=== PATIENT | female | born 1960 | race African-American/Black ===

== ENCOUNTER 2016-05-19 13:11 | Emergency (ER) | payer MEDICARE, OTHER ==
[~2016-05-19] VITALS: Ht 160 cm; Wt 108.9 kg
[~2016-05-19 13:11] MED LIST: AMOX875T PO; CYCL10TA2 PO; HYDR12.58 PO; LIDO20SO PO; PRED50TA PO
[2016-05-19 13:16] VITALS: BP 151/98
[2016-05-19] MEDS ORDERED: DICY10CA53 PO (14:53)
--- NOTE | 2016-05-19 14:53 | PHYS DOC ---
Past Medical History Past Medical History: Diabetes-Type II, Hypertension Past Surgical History: Other Additional Past Surgical Histo: unilateral falopian tubectomy, orthopedic l knee Alcohol Use: None Drug Use: None Adult General Chief Complaint Chief Complaint: DIARRHEA HPI HPI Patient is a 56 year old female who presents with diarrhea. Patient states yesterday evening she ate some applesauce and approximately one hour later started developing abdominal cramping and diarrhea. Patient denies any vomiting. Patient denies fevers or chills. Patient denies any abdominal history other than ectopic . Last menstrual period 4 years ago. Past medical history: diabetes & hypertension. Social history nonsmoker. Patient denies any blood in the stools. Review of Systems Review of Systems Constitutional: Denies fever or chills Eyes: Denies change in visual acuity, redness, or eye pain HENT: Denies nasal congestion or sore throat Respiratory: Denies cough or shortness of breath Cardiovascular: No chest pain or palpitations GI: Denies nausea, vomiting, bloody stools. Positive abdominal pain andr diarrhea : Denies dysuria or hematuria Musculoskeletal: Denies back pain or joint pain Integument: Denies rash or skin lesions Neurologic: Denies headache, focal weakness or sensory changes Endocrine: Denies polyuria or polydipsia Allergies Allergies Allergies Coded Allergies Type Severity Reaction Last Updated Verified hydrocodone Allergy Severe "Heart flutters" 06/04/15 Yes morphine Allergy Intermediate "It does not agree with me" 06/04/15 Yes Physical Exam Physical Exam Constitutional: Well developed, well nourished, mild acute distress, non-toxic appearance. HENT: Normocephalic, atraumatic, bi oropharynx moist, no oral exudates, nose normal. Eyes: PERRLA, EOMI, conjunctiva normal, no discharge. Neck: Normal range of motion, no tenderness, supple, no stridor. Cardiovascular:Heart rate regular rhythm, no murmur Lungs & Thorax: Bilateral breath sounds clear to auscultation Abdomen: Bowel sounds normal, soft, no tenderness, no masses, no pulsatile masses. Skin: Warm, dry, no erythema, no rash. Back: No tenderness, no CVA tenderness. Extremities: No tenderness, no cyanosis, no clubbing, R no edema. Neurologic: Alert and oriented X 3, normal motor function, normal sensory function, no focal deficits noted. Psychologic: Affect normal, judgement normal, mood normal. Current Patient Data Vital Signs Vital Signs Date Time Temp Pulse Resp B/P Pulse Ox O2 Delivery O2 Flow Rate FiO2 05/19/16 13:16 96.4 74 18 151/98 98 Room Air 96.4 Lab Values Laboratory Tests Test 05/19/16 14:57 Glucose (Fingerstick) 98mg/dL (70-99) EKG EKG [] Radiology/Procedures Radiology/Procedures [] Course & Med Decision Making Course & Med Decision Making Pertinent Labs and Imaging studies reviewed. (See chart for details) [] Dragon Disclaimer Dragon Disclaimer This electronic medical record was generated, in whole or in part, using a voice recognition dictation system. Departure Departure Impression: Primary Impression: Diarrhea Disposition: 01 HOME, SELF-CARE Condition: STABLE Referrals: EARL MCKEON APRN (PCP) Patient Instructions: Diarrhea Scripts Dicyclomine Hcl (Bentyl)10 Mg Capsule1 Cap PO TID #10 CAP Ref 1 Prov:JEFE RITTER MD 05/19/16 Problem Qualifiers Primary Impression: Diarrhea Diarrhea type: unspecified type Qualified Code: R19.7 - Diarrhea, unspecified JEFE RITTER MD May 19, 2016 14:53
== END 2016-05-19 15:17 | disposition home or self-care (01) ==
LOC: ER 13:11
DX: R19.7 Diarrhea, unspecified (principal); R10.9 Unspecified abdominal pain; I10 Essential (primary) hypertension; E11.9 Type 2 diabetes mellitus without complications; Z88.5 Allergy status to narcotic agent; Z90.721 Acquired absence of ovaries, unilateral
CPT/HCPCS: 82962; 99283

== ENCOUNTER 2021-04-23 15:56 | Emergency (ER) | payer MEDICARE, OTHER ==
[~2021-04-23] VITALS: Ht 160 cm; Wt 100.6 kg
[~2021-04-23 15:56] MED LIST changes: +CYCL10TA19 PO; -CYCL10TA2 PO; +DICY10CA53 PO
[2021-04-23] MEDS ORDERED: fentaNYL PF VIAL 100 MCG/2 ML VIAL IVP ONE (20:00)
[2021-04-23] MEDS ORDERED: IV NORMAL SALINE 1000ML BAG 1,000 ML IV ONE (20:00)
[2021-04-23] MEDS ORDERED: ONDANSETRON PF 4 MG/2 ML VIAL. IVP ONE (20:00)
--- NOTE | 2021-04-23 20:48 | PHYS DOC ---
Past Medical History Past Medical History: Diabetes-Type II, Hypertension (LATRICIA BARBA APRN) Past Surgical History: Other Additional Past Surgical Histo: unilateral falopian tubectomy, orthopedic l knee (LATRICIA BARBA APRN) Smoking Status: Never Smoker Alcohol Use: None Drug Use: None (LATRICIA BABRA APRN) General Adult EDM: Chief Complaint: ABDOMINAL PAIN HPI: HPI: Patient is a 61-year-old female that presents today with abdominal pain with nausea and diarrhea. Patient states her symptoms started 1 week ago, she states that she ate what she feels was spoiled food, and since that time she has had increased abdominal pain with multiple runny stools every day. Patient states she has had crampy abdominal pain and nothing that she has done has helped that pain. She states she has been trying to eat yogurt and take probiotics to see if that may help with the diarrhea and abdominal pain and that has not done anything to help the pain. Patient states she has had some nausea but no vomiting, she feels the nausea is related to the abdominal cramping that she is experiencing. She states the only surgeries that she has had has been a ectopic where she had her fallopian tube removed, but she still has her gallbladder and appendix. Patient denies painful urination or frequency in urination and no vaginal bleeding or vaginal discharge. (LATRICIA BARBA APRN) Review of Systems: Review of Systems: Constitutional: Denies fever or chills. [] Eyes: Denies change in visual acuity. [] HENT: Denies nasal congestion or sore throat. [] Respiratory: Denies cough or shortness of breath. [] Cardiovascular: Denies chest pain or edema. [] GI: abdominal pain, nausea, diarrhea. Denies bloody diarrhea or vomiting [] : Denies dysuria. [] Musculoskeletal: Denies back pain or joint pain. [] Integument: Denies rash. [] Neurologic: Denies headache, focal weakness or sensory changes. [] Endocrine: Denies polyuria or polydipsia. [] Lymphatic: Denies swollen glands. [] Psychiatric: Denies depression or anxiety. [] (LATRICIA BARBA APRN) Heart Score: C/O Chest Pain: N/A Risk Factors: Risk Factors: DM, Current or recent (<one month) smoker, HTN, HLP, family history of CAD, obesity. Risk Scores: Score 0 - 3: 2.5% MACE over next 6 weeks - Discharge Home Score 4 - 6: 20.3% MACE over next 6 weeks - Admit for Clinical Observation Score 7 - 10: 72.7% MACE over next 6 weeks - Early Invasive Strategies (LATRICIA BARBA APRN) C/O Chest Pain: No (MARCELA BILLINGSLEY MD) Current Medications: Current Medications Medications (Trade) Dose Ordered Sig/Genaro Start Time Stop Time Status Last Admin Dose Admin Fentanyl Citrate (Fentanyl 2ml Vial) 50 mcg 1X ONCE 04/23/21 20:00 04/23/21 20:01 DC Ondansetron HCl (Zofran) 4 mg 1X ONCE 04/23/21 20:00 04/23/21 20:01 DC Sodium Chloride 1,000 ml @ 999 mls/hr 1X ONCE 04/23/21 20:00 04/23/21 21:00 04/23/21 20:17 999 MLS/HR (LATRICIA BARBA APRN) Allergies: Allergies: Allergies Coded Allergies Type Severity Reaction Last Updated Verified Pork/Porcine Containing Products Allergy Severe 04/23/21 Yes codeine Allergy Severe 04/23/21 Yes hydrocodone Allergy Severe "Heart flutters" 06/04/15 Yes morphine Allergy Intermediate "It does not agree with me" 06/04/15 Yes (LATRICIA BARBA APRN) Physical Exam: PE: Constitutional: Well developed, well nourished, no acute distress, non-toxic appearance. [] HENT: Normocephalic, atraumatic, bilateral external ears normal, oropharynx moist, no oral exudates, nose normal. [] Eyes: PERRLA, EOMI, conjunctiva normal, no discharge. [] Neck: Normal range of motion, no tenderness, supple, no stridor. [] Cardiovascular:Heart rate regular rhythm, no murmur [] Lungs & Thorax: Bilateral breath sounds clear to auscultation [] Abdomen: Bowel sounds hyperactive, diffuse tenderness mostly umbilicus, no pulsatile masses noted. Skin: Warm, dry, no erythema, no rash. [] Back: No tenderness, no CVA tenderness. [] Extremities: No tenderness, no cyanosis, no clubbing, ROM intact, no edema. [] Neurologic: Alert and oriented X 3, normal motor function, normal sensory function, no focal deficits noted. [] Psychologic: Affect normal, judgement normal, mood normal. [] (LATRICIA BARBA APRN) Current Patient Data: Vital Signs: Vital Signs Date Time Temp Pulse Resp B/P (MAP) Pulse Ox O2 Delivery O2 Flow Rate FiO2 04/23/21 20:15 85 26 158/94 (115) 98 Room Air 04/23/21 15:56 98.0 98.0 (LATRICIA BARBA APRN) EKG: EKG: [] (LATRICIA BARBA APRN) Radiology/Procedures: Radiology/Procedures: [] (LATRICIA BARBA APRN) Radiology/Procedures: [facility] [address] [place] [address] IMAGING REPORT Signed PATIENT: DIANE FUNK ACCOUNT: [id number] : 1960 LOCATION: ER AGE: 61 SEX: F EXAM STATUS: REG ER ORD. PHYSICIAN: LATRICIA BARBA APRN REASON: ABDOMINAL PAIN, omni 300 75 ml iv PROCEDURE: CT ABD PELV W/ IV CONTRST ONLY Exam: CT of abdomen and pelvis with contrast INDICATION: Abdominal pain TECHNIQUE: Sequential axial images through the abdomen and pelvis obtained following the administration of 75 mm of Isovue-370 IV contrast. Sagittal and coronal reformatted images were reconstructed from the axial data and reviewed. Exposure: One or more of the following in the visualized dose reduction techni ques were utilized for this examination: 1. Automated exposure control 2. Adjustment of the MA and/or KV according to patient size 3. Use of iterative of reconstructive technique Comparisons: None FINDINGS: Heart size is normal. No pericardial effusion. Visualized lung bases are clear. No pleural effusion. Liver, spleen, pancreas and adrenals are unremarkable. Gallstones and within the gallbladder. No perinephric inflammation or hydronephrosis. No renal or ureteral calculi are identified. Bladder is stented appears thin-walled. Calcified fibroid noted in the uterus. No abnormal adnexal mass. Moderate amount stool noted in the colon. Appendix is normal. No free intra- abdominal air or fluid. No obstruction. Abdominal aorta has normal course and caliber. Abdominal vasculature is patent. No enlarged intra-abdominal lymph nodes are identified. No suspicious osseous lesions or acute fractures. IMPRESSION: No acute process identified within the abdomen or pelvis. Electronically signed by: Tarun Lucero MD (04/23/2021 10:44 PM) [facility] DICTATED and SIGNED BY: TARUN LUCERO MD DATE: 04/23/21 [id number] (MARCELA BILLINGSLEY MD) Course & Med Decision Making: Course & Med Decision Making Pertinent Labs and Imaging studies reviewed. (See chart for details) [id number] Billingsley, patient did refuse her nausea medication at this time. Continue to wait for lab results. [] (LATRICIA BARBA APRN) Dragon Disclaimer: Dragon Disclaimer: This electronic medical record was generated, in whole or in part, using a voice recognition dictation system. (LATRICIA BARBA APRN) Departure Departure Impression: Primary Impression: Diarrhea Disposition: HOME / SELF CARE / HOMELESS Condition: STABLE Referrals: EARL MCKEON APRN (PCP) Patient Instructions: Diet for Diarrhea, Adult Scripts Ciprofloxacin Hcl (CIPRO) 500 Mg Tablet 1 TAB PO BID for antibiotic for 7 Days, #14 TAB 0 Refills Prov: MARCELA BILLINGSLEY MD 04/23/21 LATRICIA BARBA APRN Apr 23, 2021 20:48 MARCELA BILLINGSLEY MD Apr 23, 2021 22:58
[2021-04-23 21:23] LABS: BASO % 1 % (0-3); EOS # 0.2 x10^3/uL (0.0-0.7); EOS % 2 % (0-3); HEMATOCRIT 40.5 % (36.0-47.0); HEMOGLOBIN 12.9 g/dL (12.0-15.5); LYMPH # 3.4 x10^3/uL (1.0-4.8); LYMPH % 51 % (24-48); MEAN CORPUSCULAR HEMOGLOBIN 27 pg (25-35); MEAN CORPUSCULAR HGB CONC 32 g/dL (31-37); MEAN CORPUSCULAR VOLUME 84 fL (79-100); MONO # 0.4 x10^3/uL (0.0-1.1); MONO % 6 % (0-9); NEUT # 2.8 x10^3/uL (1.8-7.7); NEUT % 41 % (31-73); PLATELET COUNT 201 x10^3/uL (140-400); RED BLOOD COUNT 4.84 x10^6/uL (3.50-5.40); RED CELL DISTRIBUTION WIDTH 14.2 % (11.5-14.5); WHITE BLOOD COUNT 6.8 x10^3/uL (4.0-11.0)
[2021-04-23 21:49] LABS: CALCIUM 9.3 mg/dL (8.5-10.1); CREATININE 0.7 mg/dL (0.6-1.0); GFR 102.3; POTASSIUM 3.9 mmol/L (3.5-5.1)
[2021-04-23 21:53] LABS: TOTAL BILIRUBIN 0.5 mg/dL (0.2-1.0); TOTAL PROTEIN 7.9 g/dL (6.4-8.2)
[2021-04-23 22:07] LABS: CLARITY,URINE CLEAR; COLOR,URINE YELLOW
[2021-04-23 22:08] LABS: BACTERIA,URINE 0 /HPF (0-FEW); BILIRUBIN,URINE NEGATIVE (NEG); NITRITE,URINE NEGATIVE (NEG); PROTEIN,URINE NEGATIVE (NEG-TRACE); RBC,URINE 0 /HPF (0-2); UROBILINOGEN,URINE 0.2 mg/dL (0.2 mg/dL); WBC,URINE OCC /HPF (0-4)
[2021-04-23] MEDS ORDERED: IOHEXOL 300 MG/ML 100ML VIAL. IV ONE (22:15)
[2021-04-23] MEDS ORDERED: CONTRAST GIVEN. MC PRN (22:30)
[2021-04-23 22:39] VITALS: BP 141/65
--- NOTE | 2021-04-23 22:47 | RAD ---
Exam: CT of abdomen and pelvis with contrast INDICATION: Abdominal pain TECHNIQUE: Sequential axial images through the abdomen and pelvis obtained following the administrati on of 75 mm of Isovue-370 IV contrast. Sagittal and coronal reformatted images were reconstructed fro m the axial data and reviewed. Exposure: One or more of the following in the visualized dose reduction techniques were utilized for this examination: 1. Automated exposure control 2. Adjustment of the MA and/or KV according to patient size 3. Use of iterative of reconstructive technique Comparisons: None FINDINGS: Heart size is normal. No pericardial effusion. Visualized lung bases are clear. No pleural effusion. Liver, spleen, pancreas and adrenals are unremarkable. Gallstones and within the gallbladder. No perinephric inflammation or hydronephrosis. No renal or ureteral calculi are identified. Bladder is stented appears thin-walled. Calcified fibroid noted in the uterus. No abnormal adnexal ma ss. Moderate amount stool noted in the colon. Appendix is normal. No free intra-abdominal air or fluid. N o obstruction. Abdominal aorta has normal course and caliber. Abdominal vasculature is patent. No enlarged intra-abdominal lymph nodes are identified. No suspicious osseous lesions or acute fractures. IMPRESSION: No acute process identified within the abdomen or pelvis. Electronically signed by: Tarun Vera MD (04/23/2021 10:44 PM) [facility]
[2021-04-23] MEDS ORDERED: CIPR500T94 PO (22:58)
[2021-04-23] MEDS ORDERED: CIPROFLOXACIN HCL 250 MG TABLET. PO ONE (23:00)
== END 2021-04-23 23:35 | disposition home or self-care (01) ==
LOC: ER 15:56
DX: R19.7 Diarrhea, unspecified (principal); R11.0 Nausea; E11.9 Type 2 diabetes mellitus without complications; I10 Essential (primary) hypertension; Z88.5 Allergy status to narcotic agent; Z88.8 Allergy status to other drugs, medicaments and biological substances
CPT/HCPCS: 36415; 74177; 80053; 81001; 83605; 83690; 85025; 96361; 96374; 96375; 99285; J2405; J3010; J7030; Q9967